=== PATIENT | female | born 1945 | race Caucasian/White ===

== ENCOUNTER 2022-11-05 12:36 | Outpatient (RCR) | payer BC, SELFPAY | END 2023-02-14 10:30 | disposition home or self-care (01) | LOC: HO.WCC 12:36 | PROVIDERS: PCP Internal Medicine; Visit Provider Physician Assistant | DX: L89.612 Pressure ulcer of right heel, stage 2 (principal); F17.210 Nicotine dependence, cigarettes, uncomplicated; Z71.6 Tobacco abuse counseling; Z79.82 Long term (current) use of aspirin; Z95.2 Presence of prosthetic heart valve; Z95.1 Presence of aortocoronary bypass graft; Z95.0 Presence of cardiac pacemaker | CPT/HCPCS: 11042 ==